=== PATIENT | male | born 1990 ===

== ENCOUNTER 2018-04-25 20:35 | Emergency (ER) | payer SELFPAY ==
--- NOTE | 2018-04-25 21:55 | ED PDOC ---
HPI: SOB/CHF/COPD Time Seen by Provider: 04/25/18 21:35 Chief Complaint (Nursing): Shortness Of Breath History Per: Patient History/Exam Limitations: no limitations Onset/Duration Of Symptoms: Other (2 weeks) Current Symptoms Are (Timing): Still Present Quality: Dull Current Respiratory Medications: None Severity: Mild Pain Scale Rating Of: 2 Associated Symptoms: denies: Fever, Bloody Cough, Productive Cough Additional Complaint(s): Patient presenting with RIght rib pain for 2 weeks. No chest pain. Reports recurrent dyspnea for september years. No fever. - Risk Factors PE Risk Factors: Neg: Extremity Immobilization/Fx, Decreased Mobilty /Activity, Recent Major Surgery, Recent Hospitalization, Active Cancer, Previous DVT, Previous PE, Recent Major Trauma Past Medical History Reviewed: Historical Data, Nursing Documentation, Vital Signs Vital Signs: Last Vital Signs Temp 98.5 F 04/25/18 20:44 Pulse 77 04/25/18 20:44 Resp 18 04/25/18 20:44 BP 137/64 04/25/18 20:44 Pulse Ox 100 04/25/18 20:44 - Medical History PMH: Denies: Asthma - Surgical History Surgical History: No Surg Hx - Family History Family History: States: No Known Family Hx - Allergies Allergies/Adverse Reactions: Allergies Allergy/AdvReac Type Severity Reaction Status Date / Time No Known Allergies Allergy Verified 05/13/17 22:36 Wells Criteria for PE - Wells Criteria for Pulmonary Embolism Clinical Signs and Symptoms of DVT: No P.E is #1 Diagnosis, or Equally Likely: No Heart Rate >100: No Immobilization at least 3 days;Surgery previous 4 weeks: No Previous, objectively diagnosed PE or DVT: No Hemoptysis: No Malignancy w/treatment within 6 months, or palliative: No Total Score: 0 Review of Systems ROS Statement: Except As Marked, All Systems Reviewed And Found Negative Physical Exam - Reviewed Nursing Documentation Reviewed: Yes Vital Signs Reviewed: Yes - Physical Exam Appears: Positive for: Well, Non-toxic, No Acute Distress Head Exam: Positive for: ATRAUMATIC, NORMAL INSPECTION Skin: Positive for: Normal Color, Warm, Dry Eye Exam: Positive for: EOMI ENT: Positive for: Normal ENT Inspection Neck: Positive for: Painless ROM, Supple Cardiovascular/Chest: Positive for: Regular Rate, Rhythm Respiratory: Positive for: Normal Breath Sounds. Negative for: Respiratory Distress Gastrointestinal/Abdominal: Positive for: Soft. Negative for: Tenderness Neurologic/Psych: Positive for: Alert, Oriented - ECG ECG: Positive for: Interpreted By Me, Viewed By Me ECG Rhythm: Positive for: Normal QRS, Normal ST Segment, Sinus Rhythm Rate: 75 O2 Sat by Pulse Oximetry: 100 - Radiology X-Ray: Interpreted by Me, Viewed By Me X-Ray Interpretation: No Acute Disease Medical Decision Making Medical Decision Making: IMpression Rib pain, recurrent dyspnea Diff include MS pain, unlikely PE EKG CXR Wells score is 0. PERC negative. Disposition - Clinical Impression Clinical Impression: Rib pain on right side - Patient ED Disposition Is Patient to be Admitted: No Doctor Will See Patient In The: Office Counseled Patient/Family Regarding: Studies Performed, Diagnosis, Need For Followup - Disposition Referrals: [facility] [Outside] Disposition: Routine/Home Disposition Time: 22:29 Condition: GOOD Additional Instructions: GERALDO HOLCOMB, thank you for letting us take care of you today. Your provider was Colton Tamez MD and you were treated for SOB. The emergency medical care you received today was directed at your acute symptoms. If you were prescribed any medication, please fill it and take as directed. It may take several days for your symptoms to resolve. Return to the Emergency Department if your symptoms worsen, do not improve, or if you have any other problems. Please contact your doctor or call one of the physicians/clinics you have been referred to that are listed on the Patient Visit Information form that is included in your discharge packet. Bring any paperwork you were given at discharge with you along with any medications you are taking to your follow up visit. Our treatment cannot replace ongoing medical care by a primary care provider outside of the emergency department. Thank you for allowing the [facility] team to be part of your care today. If you had an X-Ray or CT scan: A Radiologist will review the ED reading if any change in treatment is needed we will contact you. If you had a blood, urine, or wound culture: It will take several days for the results, if any change in treatment is needed we will contact you. If you had an STI test: It will take 48 hours for the results. Please call after 1 week if you have not heard back. Instructions: Chest Pain That Is Not Caused by the Heart (DC)
[2018-04-25 23:27] VITALS: BP 122/78; PULSE 86; RESP 16; TEMP 98.7; O2SAT 98
--- NOTE | 2018-04-26 13:23 | RAD ---
Date of service: 04/25/2018 HISTORY: rihgt rib pain COMPARISON: 01/14/2010 TECHNIQUE: Chest PA and lateral FINDINGS: LUNGS: No active pulmonary disease. PLEURA: No significant pleural effusion identified. No pneumothorax apparent. CARDIOVASCULAR: No aortic atherosclerotic calcification present. Normal cardiac size. No pulmonary vascular congestion. OSSEOUS STRUCTURES: No significant abnormalities. VISUALIZED UPPER ABDOMEN: Normal. OTHER FINDINGS: None. IMPRESSION: No active disease.
--- NOTE | 2018-04-26 13:55 | CARD ---
APPROVED REPORT Date of service: 04/25/2018 EKG Measurement Heart [id number] <Conclusion> Normal sinus rhythm with sinus arrhythmia Normal ECG
== END 2018-04-25 22:35 | disposition home or self-care (01) ==
LOC: H.ER 20:35
DX: R07.81 Pleurodynia (principal)

== ENCOUNTER 2018-09-06 22:57 | Emergency (ER) | payer SELFPAY ==
[2018-09-06 23:15] VITALS: RESP 16
--- NOTE | 2018-09-07 02:54 | ED PDOC ---
HPI: General Adult Time Seen by Provider: 09/07/18 02:02 Chief Complaint (Nursing): Back Pain Chief Complaint (Provider): cough, flank pain History Per: Patient History/Exam Limitations: no limitations Onset/Duration Of Symptoms: Days (3 weeks), Waxing/Waning Current Symptoms Are (Timing): Still Present Additional Complaint(s): 28 y/o male presents for evaluation of productive cough x 3 weeks. Patient also notes associated right-sided rib pain. Denies fever, chest pain, shortness of breath, palpitations, nausea/vomiting, abdominal pain, changes in bowel movements, urinary symptoms. No medications taken for relief thus far Past Medical History Reviewed: Historical Data, Nursing Documentation, Vital Signs Vital Signs: Last Vital Signs Temp 98.4 F 09/06/18 23:12 Pulse 77 09/06/18 23:12 Resp 16 09/06/18 23:12 BP 120/73 09/06/18 23:12 Pulse Ox 97 09/06/18 23:12 - Medical History PMH: No Chronic Diseases Denies: Asthma - Surgical History Surgical History: No Surg Hx - Family History Family History: States: No Known Family Hx - Living Arrangements Living Arrangements: Alone - Social History Current smoker - smoking cessation education provided: Yes Alcohol: Social - Immunization History Hx Tetanus Toxoid Vaccination: No Hx Influenza Vaccination: No Hx Pneumococcal Vaccination: No - Home Medications Home Medications: Ambulatory Orders Medication Instructions Recorded Ondansetron ODT [Zofran ODT] 4 mg PO Q8 #4 odt 05/09/18 Albuterol HFA [Ventolin HFA 90 1 puff IH Q4 PRN #1 inh 09/07/18 mcg/actuation (8 g)] Fluticasone Nasal [Flonase] 1 actuation NS BID #1 bottle 09/07/18 Naproxen [Naprosyn] 500 mg PO Q12 PRN #14 tablet 09/07/18 guaiFENesin/Dextromethorphan 1 - 2 tab PO Q12 PRN #20 tab 09/07/18 [guaiFENesin/DM 600-30 mg] - Allergies Allergies/Adverse Reactions: Allergies Allergy/AdvReac Type Severity Reaction Status Date / Time No Known Allergies Allergy Verified 05/09/18 06:31 Review of Systems ROS Statement: Except As Marked, All Systems Reviewed And Found Negative Respiratory: Positive for: Cough Musculoskeletal: Positive for: Other (right rib pain) Physical Exam - Reviewed Nursing Documentation Reviewed: Yes Vital Signs Reviewed: Yes - Physical Exam Appears: Positive for: Well, Non-toxic, No Acute Distress Head Exam: Positive for: ATRAUMATIC, NORMAL INSPECTION, NORMOCEPHALIC Skin: Positive for: Normal Color Eye Exam: Positive for: Normal appearance ENT: Positive for: Normal ENT Inspection Cardiovascular/Chest: Positive for: Regular Rate, Rhythm, Other (tender to palpate right lateral intercostal spaces without edema, ecchymosis ) Respiratory: Positive for: Normal Breath Sounds Gastrointestinal/Abdominal: Positive for: Normal Exam Back: Positive for: Normal Inspection. Negative for: L CVA Tenderness, R CVA Tenderness Extremity: Positive for: Normal ROM Neurological/Psych: Positive for: Awake, Alert, Oriented (x3) - ECG O2 Sat by Pulse Oximetry: 97 - Radiology X-Ray: Viewed By Me X-Ray Interpretation: No Acute Disease - Progress ED Course And Treament: -cxr -toradol IM Patient educated on findings, discharged with rx Naproxen, flonase, albuterol HFA, mucinex-DM Advised follow up PMD within 2-3 days Return precautions given Disposition - Clinical Impression Clinical Impression: Bronchitis, Right-sided chest wall pain - Patient ED Disposition Is Patient to be Admitted: No Counseled Patient/Family Regarding: Studies Performed, Diagnosis, Need For Followup, Rx Given - Disposition Referrals: [facility] [Outside] Disposition: Routine/Home Disposition Time: 04:00 Condition: IMPROVED Prescriptions: Albuterol HFA [Ventolin HFA 90 mcg/actuation (8 g)] 1 puff IH Q4 PRN #1 inh PRN Reason: Wheezing Fluticasone Nasal [Flonase] 1 actuation NS BID #1 bottle guaiFENesin/Dextromethorphan [guaiFENesin/DM 600-30 mg] 1 - 2 tab PO Q12 PRN #20 tab PRN Reason: Cough And Congestion Naproxen [Naprosyn] 500 mg PO Q12 PRN #14 tablet PRN Reason: Pain, Moderate (4-7) Instructions: Acute Bronchitis, Muscle Strain
[2018-09-07 04:32] VITALS: BP 102/62; PULSE 80; TEMP 98; O2SAT 98
--- NOTE | 2018-09-07 08:21 | RAD ---
Date of service: 09/07/2018 HISTORY: cough COMPARISON: Chest radiographs 04/17/2018. TECHNIQUE: Chest PA and lateral views FINDINGS: LUNGS: No active pulmonary disease. PLEURA: No significant pleural effusion identified. No pneumothorax apparent. CARDIOVASCULAR: No aortic atherosclerotic calcification present. Normal cardiac size. No pulmonary vascular congestion. OSSEOUS STRUCTURES: No significant abnormalities. VISUALIZED UPPER ABDOMEN: Normal. OTHER FINDINGS: None. IMPRESSION: No interval acute cardiopulmonary disease appreciated.
== END 2018-09-07 04:40 | disposition home or self-care (01) ==
LOC: H.ER 22:57
DX: J40 Bronchitis, not specified as acute or chronic (principal); R07.89 Other chest pain; F17.200 Nicotine dependence, unspecified, uncomplicated
CPT/HCPCS: 71046; 96372; 99282; J1885